=== PATIENT | female | born 1935 | race Caucasian/White ===

== ENCOUNTER 2016-09-22 11:21 | Emergency (ER) | payer MEDICARE ==
[~2016-09-22] VITALS: Ht 171.4 cm; Wt 83.6 kg
[~2016-09-22 11:21] MED LIST: ANTI1COM3 PO; ATEN50TA PO; CHOL100045 PO; GLIM4TAB2 PO; HYDR-4003 PO; HYDR25TA4 PO; LISI-571 PO; LISI10TA PO; METF500T4 PO; SLO64 PO
[2016-09-22 11:27] VITALS: BP 129/69; PULSE 60; RESP 16; O2SAT 97
[2016-09-22 11:52] LABS: BASOPHILS % (AUTO) 0.2 % (0-3); EOSINOPHILS % (AUTO) 0 % (0-5); MONOCYTES % (AUTO) 11.4 % (4-12); Mean Corpuscular Hemoglobin 30.9 pg (27.0-35.0); Mean Corpuscular Volume 86.7 fL (81-100); NEUTROPHILS % (AUTO) 49.1 % (40-74); Platelet Count 179 bil/L (150-400)
[2016-09-22 12:23] LABS: APPEARANCE,URINE HAZY (CLEAR,HAZY); COLOR,URINE STRAW (YELLOW); OCCULT BLOOD,URINE TRACE (NEGATIVE); UROBILINOGEN,URINE NORMAL (NORMAL)
--- NOTE | 2016-09-22 13:07 | ED.REPORT ---
[id number] Illness Date of Service Sep 22, 2016 ED Provider: Yashira Goel History of Present Illness: felt like she is dehydrated, positive flu dx on Sunday at [facility]. fall in bedroom on sunday, could not get up, for 3 hours was on the floor. has been staying with son. dizzy on and off with the flu. primary care is no one. was missy lives by self normally, has a 2 story house, washer and dryer is downstairs. will be staying with son till symptoms have resolved Nursing Notes Stated Complaint: DIZZINESS,FLU Chief Complaint: FLU/Cold Symptoms Nursing Notes Reviewed: Yes Allergies: Coded Allergies: No Known Allergies (Unverified , 09/22/16) Scheduled Atenolol (Atenolol) 50 Mg Tablet 50 MG PO DAILY Cholecalciferol (Vitamin D3) (Vitamin D) 1,000 Unit Capsule 2,000 UNIT PO DAILY Glimepiride (Glimepiride) 4 Mg Tablet 8 MG PO DAILYAC Hydrochlorothiazide (Hydrochlorothiazide) 25 Mg Tablet 25 MG PO DAILY Lisinopril (Lisinopril) 5 Mg Tablet 5 MG PO DAILY Lisinopril (Lisinopril) 10 Mg Tablet 10 MG PO DAILY Magnesium Chloride (Slow-Mag) 64 Mg Tablet 64 MG PO DAILY Metformin (Metformin) 500 Mg Tablet 1,000 MG PO BID Scheduled PRN Hydrocodone-Acetaminophen 5-325 mg (Hydrocodone-Acetaminophen 5-325 mg) 1 Each Tablet 1 TABLET PO Q4H PRN PRN For Pain Miscellaneous Medications Antiox#12/Om3/Dha/Epa/Lut/Zean (Macular Benefits Combo Pack) 1 Each Combo..pkg 1 EACH PO General Time Seen by Provider: 13:06 Chief Complaint Other (dizziness and weak) Hx Obtained From: Patient Onset Occurred: 3 days ago Progression Since Onset: Intermittent Past Medical History Past Medical History Notes: Seen in 2007 for palpatations, no cause identified Past Medical History Migraines Reports: Diabetes mellitus, Hypertension Past Surgical History back surgery in 1987, [place] Reports: Appendectomy (in 1946) Smoking History Former Smoker (quit 35 years ago) Social History Alcohol Use: "Social" Drug Use: Denies drug use Occupation lives by self in 2 story house with steps 09/22/2016, at present living with son Ambulatory Status Independent Review of Systems Basic Review of Systems : No dysuria, No frequency Skin: No bruising, No rash, No itch Psychiatric: Normal thought content Physical Exam Initial Vital Signs Vital Signs (First) Date Time Temp Pulse Resp B/P Pulse Ox O2 Delivery O2 Flow Rate FiO2 09/22/16 11:27 36.3 60 16 129/69 97 Room Air Initial VS: Reviewed, Vital signs normal Head / Eyes: Atraumatic, Normocephalic, PERRL ENT: Mucous membranes moist, Conjunctiva normal, No scleral icterus Abdomen / GI: Soft, Non-tender, No guarding, No rebound, No distention Back: No CVA tenderness Lymphatic: No lymphadenopathy Extremities: Vascular intact, Neuro intact, No swelling, No tenderness Psychiatric: Mood/affect normal, Behavior normal, Normal thought content General/Constitutional: Awake, Alert, No acute distress, Well appearing, Well developed, Well hydrated Neck: Atraumatic, Supple, No meningismus Respiratory / Chest: Atraumatic, Breath sounds NL, Breath sounds = bilat Cardiovascular: Heart rate NL, Regular rhythm, Heart sounds NL Skin: Atraumatic, Color NL, No rash Neurologic: Oriented X3, Speech NL, No motor deficits, No sensory deficits, CN II - XII intact, Reflexes equal bilat, Cerebellar NL, Memory NL, Gait NL Interpretation & Diagnostics Interpretation & Diagnostics: PROCEDURE: CT BRAIN WITHOUT CONTRAST just below [place] level of the [id number]) INDICATIONS: dizzy TECHNIQUE: Noncontrast 4.5 mm thick angled axial sections acquired from the foramen magnum to the vertex, with coronal reformats. COMPARISON: None. FINDINGS: Image quality: Diagnostic. Brain: There is no acute intra-axial or extra-axial hemorrhage. No extra-axial fluid collection is identified. There is no midline shift or mass effect. The orbits are grossly unremarkable. No large areas of diffusely decreased attenuation are evident within the brain to suggest diffuse cerebral edema. However, there is a moderate-sized area of encephalomalacia evident along the anterior right frontal region. A small area of encephalomalacia along the superior margin of the right posterior frontal region also is present. Additional areas of periventricular low attenuation are noted. The ventricles are moderately prominent. The cortical sulci are within normal limits for the patient's age. There may be a small arachnoid cyst to the left midline just above the level of the middle cerebellar peduncle (image 12, series 2). Bones: Calvarium and visualized facial bones are grossly intact. The imaged paranasal sinuses and mastoid air cells are clear. IMPRESSION: 1. No acute intracranial hemorrhage. 2. 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 3. Parenchymal volume loss. Dictated by: Olvin Powers M.D. on 09/22/2016 at 15:29 Lab Results Interpretation Result Diagram: 09/22/16 1144 09/22/16 1144 Test 09/22/16 11:44 09/22/16 11:59 09/22/16 13:35 White Blood Count 4.2th/mm3 (3.8-10.1) Red Blood Count 4.43mil/mm3 (3.90-5.20) Hemoglobin 13.7g/dL (12.0-15.6) Hematocrit 38.4% (35.0-46.0) Mean Corpuscular Volume 86.7fL (81-100) Mean Corpuscular Hemoglobin 30.9pg (27.0-35.0) Mean Corpuscular Hemoglobin Concent 35.7% (32.0-37.0) Red Cell Distribution Width 11.5% (12.3-15.4) Platelet Count 179bil/L (150-400) Neutrophils (%) (Auto) 49.1% (40-74) Lymphocytes (%) (Auto) 39.3% (14-46) Monocytes (%) (Auto) 11.4% (4-12) Eosinophils (%) (Auto) 0% (0-5) Basophils (%) (Auto) 0.2% (0-3) Sodium Level 123mEq/L (134-144) Potassium Level 4.0mEq/L (3.5-5.2) Chloride Level 82mEq/L (97-108) Carbon Dioxide Level 25mmol/L (18-29) Blood Urea Nitrogen 14mg/dL (8-27) Creatinine 0.63mg/dL (0.57-1.00) Estimat Glomerular Filtration Rate 130mL/min (>59) Glucose Level 199mg/dL (60-99) Calcium Level 8.9mg/dL (8.5-10.1) Total Bilirubin 0.5mg/dL (0.0-1.2) Aspartate Amino Transf (AST/SGOT) 50U/L (0-50) Alanine Aminotransferase (ALT/SGPT) 24U/L (0-32) Alkaline Phosphatase 51U/L (25-165) Total Protein 6.6g/dL (6.4-8.4) Albumin 4.1g/dL (3.4-5.0) Hold [place] Top Tube Received (Received) Urine Color Straw (YELLOW) Urine Appearance Hazy (CLEAR,HAZY) Urine pH 6.0 (5.0-8.0) Urine Specific [place] 1.010 (1.003-1.035) Urine Protein Negativemg/dL (NEG,TRACE) Urine Glucose (UA) Negativemg/dL (NEGATIVE) Urine Ketones 15mg/dL (NEGATIVE) Urine Occult Blood Trace (NEGATIVE) Urine Nitrite Negative (NEGATIVE) Urine Bilirubin Negative (NEGATIVE) Urine Urobilinogen Normalmg/dL (NORMAL) Urine Leukocyte Esterase Negative (NEGATIVE) Urine RBC 0-2/hpf (0-2) Urine WBC 0-5/hpf (0-5) Urine Epithelial Cells Occasional/hpf (NONE-MOD) Urine Crystals None seen (NONE SEEN) Urine Bacteria None/hpf (NONE-FEW) Urine Hyaline Casts None/lpf (NONE) Urine Granular Casts None seen (NONE SEEN) Urine Waxy Casts None seen (NONE SEEN) Urine Red Blood Cell Casts None seen (NONE SEEN) Urine White Blood Cell Casts None seen (NONE SEEN) Urine Mucus None seen (None Seen) Urine Trichomonas None seen (NONE SEEN) Urine Yeast None (NONE SEEN) Urinalysis Comment None Urine Culture Reflexed Not indicated Troponin T < 0.010ug/L (0.0-0.011) X-Ray Chest Interpretation Chest Xray Interpretation: ROCEDURE: X-RAY CHEST ONE VIEW, PORTABLE ([id number]) INDICATIONS: 80 year-old female with dizziness and weakness. TECHNIQUE: One view of the chest was acquired. COMPARISON: [facility], , XR CHEST 1VW (PORTABLE), 01/06/2016, 10:15. [facility], , CHEST 1VW (PORTABLE), 05/29/2008, 12:00. FINDINGS: Surgical changes and devices: None. Lungs and pleura: No pleural effusions or pneumothorax. Lungs are clear. Mediastinum: Mediastinal contours appear normal. Heart size is normal. There is aortic atherosclerosis. Bones and chest wall: No suspicious bony lesions. There is mild thoracolumbar spine dextroscoliosis. Overlying soft tissues appear unremarkable. IMPRESSION: No acute cardiopulmonary disease. Dictated by: Neymar Duran M.D. on 09/22/2016 at 13:55 Approved by: Neymar Duran M.D. on 09/22/2016 at 13:55 Re-Evaluation & [facility] Med Decision/Clinical Course 80 year old female with hx of multiple falls, with recent dx of influenza presents for evualation of dizziness. Brain CT does not show any acute injury. Chest x-ray is negative. Evualation by physical therapy feel she is safe to go home. Their recommendation is out patient physical therapy. Patient states she will consider it. At present staying with son but normally lives by self. Labs reveal sodium of 123, unable to compare as no previous labs. Encouraged repeat lab in 5 to 7 days. No sign of menigitis or gastritis or acute stroke. Source of Hx: Old records Patient Discharge & Departure Impression: Primary Impression: Dizziness Disposition: Home Patient Instructions: Fall Prevention for Older Adults (GEN) Additional Instructions: The brain CT does not show any acute changes. Your troponin, a marker for cardiac issues is negative. Your sodium is a little low at 123. You will need this repeated in 5 to 7 days. You need to establish in primary care. It appears you have been assigned to Rachel Valverde. Your urine looks good, no sign of infection. Physical therapy feels you would benefit greatly from some physical therapy on an out patient basis. Please discuss the option with with primary care. Stay with your son until the flu symptoms have resolved. REturn with any concerns. Referrals: Judith Valverde (PCP) EDSupervising Provider for APC: Aung Dong MD copies to: Judith Valverde Sue ARNP Sep 22, 2016 13:06
[2016-09-22] MEDS ORDERED: 0.9% Sodium Chloride 1,000 ML IV ONE (13:25)
--- NOTE | 2016-09-22 13:57 | DRSVH ---
PROCEDURE: X-RAY CHEST ONE VIEW, PORTABLE ([id number]) INDICATIONS: 80 year-old female with dizziness and weakness. TECHNIQUE: One view of the chest was acquired. COMPARISON: [facility], CR, XR CHEST 1VW (PORTABLE), 01/06/2016, 10:15. [facility], CR, CHEST 1VW (PORTABLE), 05/29/2008, 12:00. FINDINGS: Surgical changes and devices: None. Lungs and pleura: No pleural effusions or pneumothorax. Lungs are clear. Mediastinum: Mediastinal contours appear normal. Heart size is normal. There is aortic atheroscler osis. Bones and chest wall: No suspicious bony lesions. There is mild thoracolumbar spine dextroscoliosis . Overlying soft tissues appear unremarkable. IMPRESSION: No acute cardiopulmonary disease. Dictated by: Neymar Duarn M.D. on 09/22/2016 at 13:55 Approved by: Neymar Duran M.D. on 09/22/2016 at 13:55
--- NOTE | 2016-09-22 15:12 | NUR ---
Evaluation completed. Please go to "Notes" then click on "Assessments and Notes" (bottom left corner of screen). Then select appropriate discipline tab on top of screen.
[2016-09-22 16:25] VITALS: BP 140/64; PULSE 56; RESP 12; O2SAT 96
--- NOTE | 2016-09-22 16:34 | DRSVH ---
PROCEDURE: CT BRAIN WITHOUT CONTRAST just below the level of the [id number]) INDICATIONS: dizzy TECHNIQUE: Noncontrast 4.5 mm thick angled axial sections acquired from the foramen magnum to the vertex, with c oronal reformats. COMPARISON: None. FINDINGS: Image quality: Diagnostic. Brain: There is no acute intra-axial or extra-axial hemorrhage. No extra-axial fluid collection is i dentified. There is no midline shift or mass effect. The orbits are grossly unremarkable. No large areas of diffusely decreased attenuation are evident within the brain to suggest diffuse cer ebral edema. However, there is a moderate-sized area of encephalomalacia evident along the anterior right frontal region. A small area of encephalomalacia along the superior margin of the right executive services administrator ior frontal region also is present. Additional areas of periventricular low attenuation are noted. The ventricles are moderately prominent. The cortical sulci are within normal limits for the patient 's age. There may be a small arachnoid cyst to the left midline just above the level of the middle c erebellar peduncle (image 12, series 2). Bones: Calvarium and visualized facial bones are grossly intact. The imaged paranasal sinuses and m astoid air cells are clear. IMPRESSION: 1. No acute intracranial hemorrhage. 2. Extensive chronic small vessel ischemic changes and old small areas of infarction within the brai n. 3. Parenchymal volume loss. Dictated by: Olvin Powers M.D. on 09/22/2016 at 15:29 Approved by: Olvin Powers M.D. on 09/22/2016 at 15:32
[2016-09-22 17:19] VITALS: BP 140/64; PULSE 56; RESP 12; O2SAT 96
== END 2016-09-22 17:19 | disposition home or self-care (01) ==
LOC: SED 11:21
DX: R42 Dizziness and giddiness (principal); I10 Essential (primary) hypertension; E11.9 Type 2 diabetes mellitus without complications; Z91.81 History of falling; Z79.84 Long term (current) use of oral hypoglycemic drugs; Z87.891 Personal history of nicotine dependence
CPT/HCPCS: 36415; 70450; 71010; 80053; 81000; 84484; 85025; 93005; 97161; 99285; G0463; J7030